=== PATIENT | female | born 1930 | race Caucasian/White ===

== ENCOUNTER 2018-12-05 16:22 | Inpatient (IN) ==
[2018-12-05 18:31] LABS: URINE SOURCE CLEAN CATCH
[2018-12-05 18:46] LABS: BILIRUBIN URINE NEGATIVE (NEGATIVE); BLOOD URINE NEGATIVE (NEGATIVE); COLOR YELLOW; GLUCOSE URINE NEGATIVE (NEGATIVE); KETONE URINE NEGATIVE (NEGATIVE); LEUKOCYTES URINE NEGATIVE (NEGATIVE); NITRITE URINE NEGATIVE (NEGATIVE); PROTEIN URINE 200 mg/dL (NEGATIVE); SP GRAVITY URINE 1.003; TURBIDITY URINE CLEAR (CLEAR); UROBILINOGEN URINE NORMAL (NORMAL)
[2018-12-05 18:47] LABS: UR EPITHELIAL CELLS <10 /HPF (<10); URINE BACTERIA NEGATIVE /HPF; URINE RBC <10 /HPF (<10); URINE WBC <10 /HPF (<10)
[2018-12-05] MEDS ORDERED: LASIX IV ONE (19:04)
[2018-12-05] MEDS: NORCO-5 PO PRN (20:40)
[2018-12-05] MEDS: NEURONTIN PO SCH (20:40)
[2018-12-05] MEDS: PRINZIDE 20/12.5MG PO SCH (20:40)
[2018-12-05] MEDS: LASIX IV SCH (20:42)
[2018-12-05 20:51] LABS: IRON SATURATION 7 %; TIBC 330 ug/dL; TOTAL IRON 23 ug/dL (49-151); UNBOUND IRON 307 ug/dL (112-346)
[2018-12-05] MEDS: HUMULIN R SUBQ SCH (21:52)
[2018-12-05 21:54] LABS: URINE SOURCE CATH
[2018-12-05 23:02] LABS: BILIRUBIN URINE NEGATIVE (NEGATIVE); BLOOD URINE NEGATIVE (NEGATIVE); COLOR STRAW; GLUCOSE URINE NEGATIVE (NEGATIVE); KETONE URINE NEGATIVE (NEGATIVE); LEUKOCYTES URINE NEGATIVE (NEGATIVE); NITRITE URINE NEGATIVE (NEGATIVE); PH URINE 7.5; PROTEIN URINE 70 mg/dL (NEGATIVE); TURBIDITY URINE CLEAR (CLEAR); UR EPITHELIAL CELLS <10 /HPF (<10); URINE BACTERIA NEGATIVE /HPF; URINE RBC <10 /HPF (<10); URINE WBC <10 /HPF (<10); UROBILINOGEN URINE NORMAL (NORMAL)
[2018-12-06] MEDS: APRESOLINE IV PRN ×2 (00:08→12:21)
--- NOTE | 2018-12-06 00:17 | HISTORY AND PHYSICAL ---
CHIEF COMPLAINT: Complains of shortness of breath on exertion and swelling for the last few days. HISTORY OF PRESENT ILLNESS: She is a 88-year-old white female, basically came in my office with the above symptoms. Decreased breath sounds in the left base. Chest x-ray showed moderate pleural effusion. Pedal edema 2+. Basically admitted to the hospital for congestive heart failure. She also appears to be pale, and for all these reasons the patient is admitted in [facility]. PAST MEDICAL HISTORY: Atrial fibrillation, chronic, rate-controlled; chronic diastolic heart failure; type 2 diabetes with neuropathy; hypertension; gout; ventral hernia, status post repair; vitamin B12 deficiency; vitamin D deficiency. PAST SURGICAL HISTORY: Partial colectomy with colon resection x2 for diverticulitis, appendectomy, gallbladder surgery, umbilical hernia repair, partial hysterectomy, ventral hernia repair. MEDICATIONS: In my office, allopurinol 300 mg daily; digoxin 125 daily; Cardizem 240 one tablet daily; metformin/Glucovance 5/500 one tablet p.o. b.i.d.; Icar-C Plus 1 tablet daily; Lasix 40 mg daily; [place] as needed; vitamin D 50,000 once a week; Xarelto 10 mg daily. ALLERGIES: Reported to aminoglycoside, amoxicillin, cephalosporin, Flagyl, Septra, Unasyn. SOCIAL HISTORY: , no children. [place] [employer], retired in 1999. No smoking. No alcohol. Living in [place]. FAMILY HISTORY: Father at the age of 65 from stroke. Mother of 76, stroke and heart problems. Brother of massive heart attack. HEALTH MAINTENANCE: The patient does have Living Will, DNR. Last colonoscopy in [address] August. Partial hysterectomy. Mammography in 2016. Flu vaccine 04/2017. REVIEW OF SYSTEMS: Exertional shortness of breath, PND, orthopnea, swelling. No headache, no dizziness. No vision problem. GI: No nausea, vomiting or abdominal pain. : No history of hesitancy, frequency, dysuria. Swelling of legs. No back pain. Neurologic: No focal symptoms or weakness. PHYSICAL EXAMINATION: VITAL SIGNS: Temperature is 97 degrees, blood pressure is 198/68, 2 L nasal cannula. HEENT: Slightly pale. Atraumatic, normocephalic. TMs are normal. NECK: Supple. No lymphadenopathy. JVD is elevated. CHEST: Decreased breath sounds on the left side. HEART: Sounds are very distant. Irregular. ABDOMEN: Belly is soft, obese, nontender. Good bowel sounds. EXTREMITIES: Pedal edema 1+ in both legs. NEUROLOGIC: No obvious neurological deficits. LABORATORY DATA: Investigation in my office: Hemoglobin 9 g. Urinalysis is clear. The rest of the labs are pending. DIAGNOSTIC DATA: Chest x-ray: Moderate left pleural effusion. ASSESSMENT AND PLAN: 1. An 88-year-old white female admitted to the hospital with diastolic heart failure with underlying atrial fibrillation, with moderate pleural effusion, uncontrolled hypertension. Plan is Lanoxin 125 daily, Cardizem 240 daily, Lasix intravenously b.i.d. and Prinzide 1 tablet p.o. b.i.d. Follow up on the pending labs. We will use the hydralazine for control of the blood pressure if it is more than 160. 2. We will get an echocardiography. Fluid restriction. Daily weights. 3. Gout, on Zyloprim 300 daily. 4. Type 2 diabetes, on Glucovance as directed. 5. Constipation, on MiraLAX. 6. Continue on Xarelto for underlying atrial fibrillation. 7. Perez catheter. 8. Living Will: Do Not Resuscitate/Allow Natural . 9. Anemia. Check the stool for occult blood. Anemia profile. Discussed with the family at bedside and will follow up. cc: Dyllan Brody MD
[2018-12-06] MEDS: NORCO-5 PO PRN ×3 (05:48→21:03)
[2018-12-06 06:10] LABS: INR 1.28
[2018-12-06] MEDS: HUMULIN R SUBQ SCH ×4 (06:17→21:00)
[2018-12-06 06:29] LABS: CALCIUM 9.2 mg/dL (8.8-10.2); CREATININE 1.3 mg/dL (0.5-0.9)
--- NOTE | 2018-12-06 07:02 | EKG Report ---
Test Performed on : 12/06/2018 06:17:38 AM Test Reason : cp Blood Pressure : / mmHG Vent. Rate : 084 BPM Atrial Rate : 084 BPM P-R Int : 276 ms QRS Dur : 082 ms QT Int : 360 ms P-R-T Axes : 080 249 058 degrees QTc Int : 425 ms Sinus rhythm. with 1st degree AV block. Possible Left atrial enlargement Right superior axis deviation Pulmonary disease pattern Septal infarct (cited on or before 27-JUL-2015) Abnormal ECG When compared with ECG of 28-SEP-2017 15:21, Sinus rhythm. has replaced Atrial fibrillation. Questionable change in initial forces of Septal leads Confirmed by Seng KIM, Oleksandr Damon ([id number]) on 12/09/2018 11:29:05 AM
[2018-12-06] MEDS: LASIX IV SCH ×2 (08:10→21:00)
[2018-12-06] MEDS: NEURONTIN PO SCH ×2 (08:10→20:59)
[2018-12-06] MEDS: GLUCOPHAGE PO SCH ×2 (08:11→16:35)
[2018-12-06] MEDS: CARDIZEM CD PO SCH (08:11)
[2018-12-06] MEDS: XARELTO PO SCH (08:11)
[2018-12-06] MEDS: ZYLOPRIM PO SCH (08:11)
[2018-12-06] MEDS: PRINZIDE 20/12.5MG PO SCH ×2 (08:11→20:59)
[2018-12-06] MEDS: LANOXIN PO SCH (08:11)
[2018-12-06] MEDS: GLUCOTROL PO SCH ×2 (08:12→16:35)
[2018-12-06] MEDS: MIRALAX PO SCH (08:12)
--- NOTE | 2018-12-06 11:41 | Diag Imaging Result Doc PS360 ---
EXAM: CHEST-2 VIEWS 12/06/2018 HISTORY: hypoxia TECHNIQUE: PA and lateral chest COMMENT: There is cardiomegaly. There is a left pleural effusion which has increased in volume since the previous study of 09/30/2017. There is a smaller right pleural effusion. There may be mild interstitial pulmonary edema. This was also the case previously. IMPRESSION: Mild pulmonary edema. Bilateral pleural effusions. Atelectasis versus pneumonia left lower lobe. Electronically signed by Alonso Nicole 12/06/2018 11:39 AM
--- NOTE | 2018-12-06 15:06 | ECHO REPORT ---
ORDER DATE: 12/05/2018 INDICATION: Embolism, shortness of breath, CHF, pleural effusion. FINDINGS: 1. Right atrium appears normal in size at 3.9 cm. 2. Mild tricuspid regurgitation. Insufficient data to estimate RV systolic pressure. 3. Normal RV size and systolic function. 4. No significant pulmonic insufficiency. 5. Mild left atrial enlargement at 4 cm. 6. No mitral valve prolapse. Mild mitral regurgitation. No evidence of mitral stenosis. 7. Normal LV size, end-diastolic dimension of 4.6. Mild left ventricular hypertrophy with a posterior and interventricular septal wall thickness of 1.2 and 1.3 cm respectively. Normal LV systolic function. Estimated EF is 70% with normal wall motion. 8. Aortic valve opens well. It is trileaflet. No evidence of stenosis or insufficiency. 9. Aorta appears normal in visualized segments. 10. There is no pericardial effusion identified. There is a pleural effusion. cc: MD Dyllan Omalley MD
--- NOTE | 2018-12-06 21:05 | PROGRESS NOTE ---
DATE: 12/06/2018 SUBJECTIVE: The patient is a little better. Excellent diuresis. Perez was placed. 3.6 L of fluid was drained, and breathing is improved. OBJECTIVE: Vital signs: Temperature is 98 degrees, pulse 56, blood pressure 147/48. HEENT Exam: Within normal limits. Respiratory: Decreased breath sounds left base. Cardiovascular: Heart sounds are regular. Abdomen: Belly is soft, nontender. Extremities: Decreased peripheral edema. INVESTIGATIONS: PT 17, INR 1.3, BUN 25, creatinine 1.3, iron 23. CK and troponin were negative. ProBNP was high. B12 255. She is on the low side. Folate is normal. Chest x-ray: Left pleural effusion. Echocardiography report: Right atrium appears to be normal size at 3.9 cm. EF 70%. There is a pleural effusion. No pericardial effusion. ASSESSMENT AND PLAN: 1. Diastolic heart failure with left pleural effusion. Excellent diuresis. 2. Paroxysmal atrial fibrillation in sinus on digitalis, Cardizem and hydralazine as needed and Prinzide. 3. Type 2 diabetes on metformin and continue on Xarelto. 4. Continue IV diuresis. 5. Follow up on x-rays on the left pleural effusion. 6. Gout on Zyloprim. 7. Living will, DNR and check the CBC and BMP. 8. Anemia. B12 on the low side. We will initiate cyanocobalamin injections and check the CBC in the morning and Hemoccult stools. Iron profile is negative. 9. Discussed the plan of care with the family at bedside. We will follow up. LEVEL OF DOCUMENTATION: 25 minutes. cc: Dyllan Brody MD
[2018-12-07 05:58] LABS: BASO# 0.04 X1000 (0.0-0.2); BASO% 0.4 % (0.0-0.8); EOS# 0.37 X1000 (0.0-0.7); EOS% 4.1 % (0.0-10.0); HEMATOCRIT 31.1 % (37.0-47.0); IMM GRAN# 0.04 X1000 (0.0-0.04); IMM GRAN% 0.4 % (0.0-0.5); LYMPH# 1.05 X1000 (1.2-3.4); LYMPH% 11.8 % (20.5-51.1); MCH 24.3 PG (27-31); MCHC 28.9 g/dL (33-37); MCV 83.8 FL (81-99); MONO# 0.83 X1000 (0.11-0.59); MONO% 9.3 % (1.7-9.3); MPV 9.2 FL (7.4-10.4); PLT 274 X1000 (130-400); RBC 3.71 XMIL (4.2-5.4); RDW 17.1 % (11.5-14.5); WBC 8.93 X1000 (4.8-10.8)
[2018-12-07 06:12] LABS: CALCIUM 9.2 mg/dL (8.8-10.2); CREATININE 1.9 mg/dL (0.5-0.9)
[2018-12-07] MEDS: HUMULIN R SUBQ SCH ×4 (07:06→20:48)
[2018-12-07] MEDS: NORCO-5 PO PRN ×2 (07:07→20:47)
[2018-12-07] MEDS: GLUCOTROL PO SCH ×2 (08:38→16:55)
[2018-12-07] MEDS: GLUCOPHAGE PO SCH ×2 (08:38→16:55)
[2018-12-07] MEDS: NEURONTIN PO SCH ×2 (09:42→20:47)
[2018-12-07] MEDS: PRINZIDE 20/12.5MG PO SCH ×2 (09:42→20:48)
[2018-12-07] MEDS: XARELTO PO SCH (09:43)
[2018-12-07] MEDS: CYANOCOBALAMIN IM SCH (09:43)
[2018-12-07] MEDS: LASIX IV SCH ×2 (09:43→20:48)
[2018-12-07] MEDS: ZYLOPRIM PO SCH (09:43)
[2018-12-07] MEDS: CARDIZEM CD PO SCH (09:45)
[2018-12-07] MEDS: LANOXIN PO SCH (09:46)
[2018-12-07] MEDS: MIRALAX PO SCH (09:47)
--- NOTE | 2018-12-07 10:45 | PROGRESS NOTE ---
DATE: 12/07/2018 SUBJECTIVE: The patient says she is feeling a little bit better. Her shortness of breath has improved. OBJECTIVE: Vital signs: Blood pressure is 156/54, respirations 18, pulse 70, temperature 97.4 degrees. HEENT: She is normocephalic. EOMS intact. PERRLA. Throat clear. Lungs: Fairly clear to auscultation. Heart: Regular rate and rhythm without murmurs, gallops, or friction rubs. The patient has a history of atrial fibrillation but she certainly sounds regular right now. Abdomen: Soft with a little mild discomfort around the umbilicus. She says she had loss of control of her bowels and that maybe that she has a little hyperactive bowels causing some discomfort. She says it is nothing very serious as far as her pain goes. Neurological: Intact grossly. ASSESSMENT: 1. Diastolic congestive heart failure. 2. Atelectasis, left lower lobe. 3. Bilateral pleural effusions. 4. History of atrial fibrillation. PLAN: Continue care. cc: MD Dyllan Payne Jr, MD
[2018-12-08 05:38] LABS: BASO# 0.04 X1000 (0.0-0.2); BASO% 0.4 % (0.0-0.8); HEMATOCRIT 30.7 % (37.0-47.0); HEMOGLOBIN 8.9 g/dL (12.0-16.0); IMM GRAN# 0.04 X1000 (0.0-0.04); IMM GRAN% 0.4 % (0.0-0.5); LYMPH# 1.22 X1000 (1.2-3.4); LYMPH% 12.2 % (20.5-51.1); MCH 24.1 PG (27-31); MCV 83.2 FL (81-99); MONO# 1.11 X1000 (0.11-0.59); MONO% 11.1 % (1.7-9.3); MPV 9.2 FL (7.4-10.4); NEUT# 7.06 X1000 (1.4-6.5); NEUT% 70.9 % (42.2-75.2); PLT 278 X1000 (130-400); RBC 3.69 XMIL (4.2-5.4); RDW 17.2 % (11.5-14.5); WBC 9.97 X1000 (4.8-10.8)
[2018-12-08] MEDS: HUMULIN R SUBQ SCH ×4 (06:09→23:12)
[2018-12-08 06:26] LABS: CALCIUM 9.1 mg/dL (8.8-10.2); CREATININE 2.1 mg/dL (0.5-0.9); POTASSIUM 3.8 mmol/L (3.5-5.1)
[2018-12-08] MEDS: CYANOCOBALAMIN IM SCH (08:48)
[2018-12-08] MEDS: LASIX IV SCH (08:48)
[2018-12-08] MEDS: LANOXIN PO SCH (08:49)
[2018-12-08] MEDS: GLUCOTROL PO SCH ×2 (08:49→17:16)
[2018-12-08] MEDS: ZYLOPRIM PO SCH (08:50)
[2018-12-08] MEDS: PRINZIDE 20/12.5MG PO SCH ×2 (08:50→21:08)
[2018-12-08] MEDS: XARELTO PO SCH (08:50)
[2018-12-08] MEDS: NEURONTIN PO SCH ×2 (08:50→21:08)
[2018-12-08] MEDS: GLUCOPHAGE PO SCH ×2 (08:50→17:16)
[2018-12-08] MEDS: MIRALAX PO SCH (08:50)
[2018-12-08] MEDS: CARDIZEM CD PO SCH (08:50)
[2018-12-08] MEDS: NORCO-5 PO PRN ×2 (08:56→21:08)
--- NOTE | 2018-12-08 13:44 | PROGRESS NOTE ---
DATE: 12/08/2018 SUBJECTIVE: The patient says she is feeling better. Her breathing is better. She is not having swelling in her feet at this time. OBJECTIVE: Vitals: Blood pressure is 160/55, respirations 17, pulse 68, temperature 97.7 degrees. HEENT: She is normocephalic. EOMS intact. PERRLA. Throat clear. Lungs: Sound clear to auscultation and percussion without rhonchi, rales, or wheezes. Heart: Regular rate and rhythm without murmurs, gallops, or friction rubs. Abdomen: Soft. Active bowel sounds. No organomegaly or tenderness. She has no pedal edema. Neurological: Intact grossly. ASSESSMENT: 1. Diastolic congestive heart failure. 2. Atelectasis, left lower lobe. 3. Bilateral pleural effusions. 4. History of atrial fibrillation. PLAN: We will get a PA and lateral chest x-ray today. cc: MD Dyllan Payne Jr, MD
--- NOTE | 2018-12-08 14:00 | Diag Imaging Result Doc PS360 ---
CHEST-2 VIEWS - 12/08/2018 INDICATION: chf COMPARISON: 12/06/2018 FINDINGS: Stable small left and trace right pleural effusion. Stable cardiomegaly. No infiltrates or edema. IMPRESSION: Cardiomegaly and bilateral pleural effusions. Electronically signed by Tan Verdin 12/08/2018 1:58 PM
[2018-12-09 05:35] LABS: BASO# 0.03 X1000 (0.0-0.2); BASO% 0.3 % (0.0-0.8); EOS# 0.54 X1000 (0.0-0.7); EOS% 5.1 % (0.0-10.0); HEMATOCRIT 32.2 % (37.0-47.0); HEMOGLOBIN 9.2 g/dL (12.0-16.0); IMM GRAN# 0.02 X1000 (0.0-0.04); IMM GRAN% 0.2 % (0.0-0.5); LYMPH# 1.65 X1000 (1.2-3.4); LYMPH% 15.4 % (20.5-51.1); MCH 23.9 PG (27-31); MCHC 28.6 g/dL (33-37); MCV 83.6 FL (81-99); MONO# 1.17 X1000 (0.11-0.59); MPV 9.3 FL (7.4-10.4); NEUT# 7.27 X1000 (1.4-6.5); PLT 272 X1000 (130-400); RBC 3.85 XMIL (4.2-5.4); RDW 16.8 % (11.5-14.5); WBC 10.68 X1000 (4.8-10.8)
[2018-12-09 06:10] LABS: CALCIUM 8.9 mg/dL (8.8-10.2); CREATININE 2.7 mg/dL (0.5-0.9); POTASSIUM 3.9 mmol/L (3.5-5.1)
[2018-12-09] MEDS: NORCO-5 PO PRN ×3 (06:22→21:05)
[2018-12-09] MEDS: HUMULIN R SUBQ SCH ×4 (06:23→21:05)
--- NOTE | 2018-12-09 08:39 | Diag Imaging Result Doc PS360 ---
CHEST-2 VIEWS - 12/09/2018 INDICATION: SOB COMPARISON: 12/08/2018 FINDINGS: Stable cardiomegaly and pulmonary vascular congestion. There has been slight decrease in size of the small left pleural effusion. Trace right pleural effusion appears to have resolved. No new infiltrates. IMPRESSION: Improvement in the small pleural effusions. Electronically signed by Tan Verdin 12/09/2018 8:37 AM
[2018-12-09] MEDS: CARDIZEM CD PO SCH (08:46)
[2018-12-09] MEDS: LANOXIN PO SCH (08:46)
[2018-12-09] MEDS: ZYLOPRIM PO SCH (08:46)
[2018-12-09] MEDS: GLUCOTROL PO SCH ×2 (08:46→16:50)
[2018-12-09] MEDS: XARELTO PO SCH (08:46)
[2018-12-09] MEDS: NEURONTIN PO SCH ×2 (08:46→21:05)
[2018-12-09] MEDS: CYANOCOBALAMIN IM SCH (08:47)
[2018-12-09] MEDS: MIRALAX PO SCH (08:47)
[2018-12-09] MEDS: PRINZIDE 20/12.5MG PO SCH ×2 (08:47→21:05)
--- NOTE | 2018-12-09 19:43 | PROGRESS NOTE ---
DATE: 12/09/2018 SUBJECT: The patient is doing lot better. Interval history was reviewed and the patient is dry, improved shortness of breath. EXAM: Temperature is 98 degrees, pulse 68, blood pressure 134/42.HEENT: Within normal limits. Chest: Clear. Improved air entry on the left side. Heart: Sounds are regular. Belly: Is soft, nontender. No edema noted. INVESTIGATIONS: White cell count 10, hematocrit 32, platelets 272,000. Sodium 140, potassium 3.9, BUN 54, creatinine 2.7, glucose 144. CK, troponin were normal. Chest x-ray is improving. ASSESSMENT AND PLAN: 1. Overdiuresis azotemia. Discontinue Lasix. 2. Hypertension, heart disease, control the blood pressure and also paroxysmal atrial fibrillation currently on Lanoxin, Cardizem, Prinzide and Xarelto. 3. Gout on Zyloprim. 4. Chronic neuropathy pain on Neurontin and discontinue Perez. Incentive spirometry. If stable will discharge in the morning and now the weight is 134 pounds. cc: Dyllan Brody MD
[2018-12-10] MEDS: HUMULIN R SUBQ SCH ×2 (06:10→11:29)
[2018-12-10 08:14] VITALS: BP 141/49
[2018-12-10] MEDS: CYANOCOBALAMIN IM SCH (09:27)
[2018-12-10] MEDS: ZYLOPRIM PO SCH (09:27)
[2018-12-10] MEDS: XARELTO PO SCH (09:27)
[2018-12-10] MEDS: NEURONTIN PO SCH (09:27)
[2018-12-10] MEDS: LANOXIN PO SCH (09:27)
[2018-12-10] MEDS: PRINZIDE 20/12.5MG PO SCH (09:27)
[2018-12-10] MEDS: CARDIZEM CD PO SCH (09:27)
[2018-12-10] MEDS: MIRALAX PO SCH (09:28)
[2018-12-10] MEDS: GLUCOTROL PO SCH (09:31)
[2018-12-10] MEDS: NORCO-5 PO PRN (09:34)
--- NOTE | 2018-12-10 22:38 | DISCHARGE SUMMARY ---
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 SECONDARY DIAGNOSES: 1. Paroxysmal atrial fibrillation. 2. Type 2 diabetes with neuropathy. 3. Hypertension. 4. Gout. 5. Ventral hernia status post repair. 6. Vitamin B12 deficiency. 7. Vitamin D deficiency. 8. Azotemia due to over-diuresis. 9. Anemia due to B12 deficiency. BRIEF HISTORY: Please see the H and P that was done on 12/05/2018. In brief, she is an 88-year- old white female admitted to the hospital from my office with shortness of breath, cough, wheezing, swelling of feet, decreased breath sounds on the left side. Chest x-ray moderate pleural effusion which is new compared to 2 months ago. The patient has elevated blood pressure. She has intermittent atrial fibrillation. The patient was admitted in [facility]. She also was anemic. HOSPITAL COURSE: The patient was given oxygen, IV Lasix with excellent diuresis. She had 7 L of fluid removed. Pleural effusion on the left side is improving. Continue on incentive spirometry. Creatinine was gone up from 1.3 to 2.4. Perez was discontinued. Blood pressure was running high. Optimize the treatment for hypertension. LABORATORY DATA: During this hospital course, CBC: White cell count 10, hematocrit 32, MCV 83, platelets 272,000. PT 17, INR 1.28. Sodium 140, potassium 3.9, chloride 99, BUN 54, creatinine 2.7. Glucose 97. Urinalysis is clear. Echocardiography report findings are LV function 70%, pleural effusion noted, mild left ventricular hypertrophy. No significant valvular heart disease seen. Discharge weight is 135 pounds, and blood pressure is 140/71. The patient is much better. DISCHARGE INSTRUCTIONS: 1. Fluid restrictions. Daily weights. 2. MiraLAX 17 g daily, Cardizem 240 in the morning, allopurinol 300 daily, lisinopril- hydrochlorothiazide 20-12.5 p.o. b.i.d., hold the glipizide, metformin until the creatinine comes back to 1.5. Digoxin 125 daily, Xarelto 10 daily, gabapentin 100 p.o. b.i.d., and [place] as needed for pain. 3. Follow up in my office next week. 4. Continue incentive spirometry, and when she comes my office will get a chest x-ray, SMA-7. Last pneumococcal vaccine 13 was given September 2017. cc: Dyllan Brody MD
== END 2018-12-10 12:45 | DRG 292 ==
LOC: DIRADM 16:22 → 3S 17:00
PROVIDERS: ADMIT Internal Medicine; ATTEND Internal Medicine
CPT/HCPCS: 71020; 71046; 80048; 81001; 82550; 82607; 82728; 82746; 82948; 83540; 83550; 83880; 84484; 85025; 85610; 93005; 93010; 93306; A9270; J0360; J1940; J3420; XXXXX